=== PATIENT | female | born 1960 | race African-American/Black ===

== ENCOUNTER → 2017-03-19 | Emergency (ER) | payer MEDICARE, OTHER ==
[~2017-03-19] VITALS: Ht 175.3 cm; Wt 70.3 kg
[~2017-03-19] MED LIST: NKM
[2017-03-20 00:18] LABS: BASOPHILS % (AUTO) 1.7 % (0.0-2.0); EOSINOPHILS % (AUTO) 0.6 % (0.0-3.0); LYMPHOCYTES % (AUTO) 48.1 % (20.0-45.0); MEAN CORPUSCULAR HEMOGLOBIN 28.9 PG (27.0-31.0); MEAN CORPUSCULAR HGB CONC 33.5 G/DL (32.0-36.0); MEAN CORPUSCULAR VOLUME 86 FL (80-99); MEAN PLATELET VOLUME 6.4 FL (6.5-10.1); MONOCYTES % (AUTO) 6.2 % (1.0-10.0); NEUTROPHILS % (AUTO) 43.4 % (45.0-75.0); PLATELET COUNT 252 K/UL (150-450); RED BLOOD COUNT 4.07 M/UL (4.20-5.40); RED CELL DISTRIBUTION WIDTH 11.9 % (11.6-14.8); WHITE BLOOD COUNT 4.9 K/UL (4.8-10.8)
--- NOTE | 2017-03-20 00:31 | Emergency Room Report ---
History of Present Illness General Chief Complaint: Syncope Source: Patient Present Illness HPI 56-year-old female no significant past medical history presents with syncopal episode. Patient and daughter were out, patient drank some champagne, started to feel very lightheaded and nauseous had a witnessed syncopal episode her daughter. Patient did not hit her head. Patient lost consciousness for less than 2 minutes. Patient states that she felt lightheaded and that she was going to faint. Patient denied any preceding chest pain shortness of breath or palpitations. Patient can recall entire event. Patient now denying any headache fever chills nausea vomiting Allergies: Coded Allergies: AMPICILLIN (Verified Allergy, Unknown, 03/19/17) Patient History Past Medical History: see triage record Past Surgical History: none Pertinent Family History: none Reviewed Nursing Documentation: PMH: Agreed, PSxH: Agreed Nursing Documentation-PMH Past Medical History: No Stated History Review of Systems All Other Systems: negative except mentioned in HPI Physical Exam Vital Signs Date Time Temp Pulse Resp B/P (MAP) Pulse Ox O2 Delivery O2 Flow Rate FiO2 03/19/17 23:28 98.1 70 18 101/67 98 Room Air Sp02 EP Interpretation: reviewed, normal General Appearance: normal inspection, well appearing, no apparent distress, alert, GCS 15, non-toxic Head: normocephalic, atraumatic Eyes: bilateral eye normal inspection, bilateral eye PERRL, bilateral eye EOMI ENT: normal ENT inspection, normal pharynx, normal voice, moist mucus membranes Neck: normal inspection, full range of motion, supple Respiratory: normal inspection, lungs clear, normal breath sounds, no respiratory distress, no retraction, no wheezing, speaking full sentences, chest symmetrical Cardiovascular #1: normal inspection, regular rate, rhythm, no edema, normal capillary refill Cardiovascular #2: 2+ radial (R), 2+ radial (L) Gastrointestinal: normal inspection, non tender, soft, non-distended, no guarding Musculoskeletal: normal inspection, back normal, normal range of motion, non- tender Neurologic: normal inspection, alert, oriented x3, responsive, motor strength/ tone normal, sensory intact, normal gait, speech normal Psychiatric: normal inspection, judgement/insight normal, memory normal Skin: normal inspection, normal color, no rash, warm/dry, well hydrated, normal turgor Medical Decision Making Diagnostic Impression: Primary Impression: Syncope ER Course 48-year-old female with syncopal episode Differential diagnosis Electrolyte disturbance hypoglycemia, dehydration hypovolemia, vasovagal syncope , cardiac At this time I will not perform CT scan of the patient's head as she is neurologically intact and ambulatory. Likely vasovagal reaction as patient else lightheaded prior to syncopal episode Plan Labs, EKG, chest x-ray, IV fluids ER course: EKG: no acute STT changes, normal intervals, no signs of Brugada / WPW / PE, Q waves inf leads Patient has remained stable during ED stay. Patient states improvement of symptoms, and has been able to ambulate without difficulty. Disposition: Patient is discharged to home and will follow up with their PMD within 3 days. Strict return precautions discussed with patient such as severe pichardo, recurrent syncope, chest pain, shortness of breath, nausea or vomiting. Patient verbalized understanding. Please note that this Emergency Department Report was dictated using [employer] technology software, occasionally this can lead to erroneous entry secondary to interpretation by the dictation equipment. EKG Diagnostic Results Rate: normal Rhythm: NSR Other Impression Q waves inferior leads with benign early repol, Q waves V5 V6 ASA given to the pt in ED: No Rhythm Strip Diag. Results EP Interpretation: yes Rate: 72 Rhythm: NSR, no PVC's, no ectopy Chest X-Ray Diagnostic Results Chest X-Ray Diagnostic Results : Chest X-Ray Ordered: Yes # of Views/Limited/Complete: 1 View Indication: Other Interpretation: no consolidation, no effusion, no pneumothorax, no acute cardiopulmonary disease Impression: No acute disease Interpreting ER Provider: Electronically signed by Edith Ambrose MD Last Vital Signs Date Time Temp Pulse Resp B/P (MAP) Pulse Ox O2 Delivery O2 Flow Rate FiO2 03/19/17 23:28 98.1 70 18 101/67 98 Room Air Disposition: HOME, SELF-CARE Condition: Improved Edith Ambrose M.D. Mar 20, 2017 00:31
[2017-03-20 00:39] LABS: TROPONIN I < 0.30 ng/mL (<=0.30)
[2017-03-20 00:42] LABS: ALBUMIN/GLOBULIN RATIO 1.3 (1.0-2.7); CALCIUM 9.4 mg/dL (8.6-10.2); CREATININE 1.2 mg/dL (0.5-0.9); GLOMERULAR FILTRATION RATE 46.2 mL/min (>60); POTASSIUM 3.1 mEQ/L (3.4-4.9); TOTAL PROTEIN 7.4 g/dL (6.6-8.7)
[2017-03-20 00:52] LABS: CKMB 3.3 ng/mL (< 3.8)
[2017-03-20 01:53] VITALS: BP 101/67
--- NOTE | 2017-03-20 11:04 | Diagnostic Imaging Report ---
Indication: Dyspnea Comparison: None A single view chest radiograph was obtained. Findings: Cardiomediastinal appearance is within normal limits for age. Pulmonary vascularity is appropriate. The diaphragmatic contour is smooth and costophrenic angles are sharp. No pleural effusions are identified. The bones are osteopenic. Impression: No acute findings
== END | disposition home or self-care (01) ==
LOC: EDBD 23:40 → EMR 23:45
DX: R55 Syncope and collapse (principal); Z88.8 Allergy status to other drugs, medicaments and biological substances; R11.0 Nausea; M85.80 Other specified disorders of bone density and structure, unspecified site
CPT/HCPCS: 36415; 71010; 80053; 82550; 82553; 84484; 85025; 93005; 99283